=== PATIENT | female | born 1940 | race Caucasian/White ===

== ENCOUNTER → 2016-09-12 | Outpatient (CLI) | payer MEDICARE ==
--- NOTE | 2016-09-13 10:57 | ECHOF ---
Referral Reason:I10 htn MEASUREMENTS -------- HEIGHT: 167.6 cm WEIGHT: 81.6 kg BP: 120/78 RVIDd: 3.4 cm (< 3.3) IVSd: 1.2 cm (0.6 - 1.1) LVIDd: 4.3 cm (3.9 - 5.3) LVPWd: 1.2 cm (0.6 - 1.1) IVSs: 1.7 cm LVIDs: 3.1 cm LVPWs: 1.6 cm LA Diam: 3.2 cm (2.7 - 3.8) LAESV Index (A-L): 18.15 ml/m Ao Diam: 2.7 cm (2.0 - 3.7) AV Cusp: 1.5 cm (1.5 - 2.6) MV E Roel: 0.68 m/s MV DecT: 564 ms MV A Roel: 1.14 m/s MV E/A Ratio: 0.60 AV maxP.62 mmHg AV meanP.60 mmHg RAP: 5.00 mmHg RVSP: 30.10 mmHg FINDINGS -------- Sinus rhythm. This was a technically adequate study. The left ventricular size is normal. There is borderline concentric left ventricular hypertrophy. Overall left ventricular systolic function is normal with, an EF between 60 - 65 %. The right ventricle is mildly enlarged. Normal LA size by volume 22+/-6 ml/m2. The right atrium is normal in size. There is moderate to severe aortic valve sclerosis. Trace to mild aortic regurgitation. There is nyqhrdgm-nz-cunrks aortic stenosis present. Peak/mean gradient across the Aortic Valve is 64.62mmHg / 32.60mmHg. Mild mitral annular calcification present. There is trace mitral regurgitation. Mild tricuspid regurgitation present. Right ventricular systolic pressure is normal at < 35 mmHg. The pulmonic valve was not well visualized. The aortic root size is normal. Normal inferior vena cava with normal inspiratory collapse consistent with estimated right atrial pressure of 5 mmHg. There is no pericardial effusion. CONCLUSIONS -------- 1. Sinus rhythm. 2. Peak/mean gradient across the Aortic Valve is 64.62mmHg / 32.60mmHg. 3. Mild mitral annular calcification present. 4. There is trace mitral regurgitation. 5. Mild tricuspid regurgitation present. 6. Right ventricular systolic pressure is normal at < 35 mmHg. 7. The pulmonic valve was not well visualized. 8. The aortic root size is normal. 9. Normal inferior vena cava with normal inspiratory collapse consistent with estimated right atrial pressure of 5 mmHg. 10. There is no pericardial effusion. 11. This was a technically adequate study. 12. The left ventricular size is normal. 13. There is borderline concentric left ventricular hypertrophy. 14. Overall left ventricular systolic function is normal with, an EF between 60 - 65 %. 15. The right ventricle is mildly enlarged. 16. Normal LA size by volume 22+/-6 ml/m2. 17. There is moderate to severe aortic valve sclerosis. 18. There is fadtbbil-tt-twplin aortic stenosis present. ASSISTANT OPERATOR: Kasandra Headley RDCS
== END | disposition home or self-care (01) ==
LOC: RADECHMAIN 13:03
PROVIDERS: ATTEND Family Medicine
DX: I08.3 Combined rheumatic disorders of mitral, aortic and tricuspid valves (principal)
CPT/HCPCS: 93306

== ENCOUNTER → 2019-08-07 | Outpatient (CLI) | payer MEDICARE ==
--- NOTE | 2019-08-07 19:04 | ECHOF ---
Referral Reason:R01.1 Heart murmur MEASUREMENTS -------- HEIGHT: 152.4 cm WEIGHT: 83.9 kg BP: IVSd: 1.3 cm (0.6 - 1.1) LVIDd: 4.3 cm (3.9 - 5.3) LVPWd: 1.0 cm (0.6 - 1.1) IVSs: 1.4 cm LVIDs: 3.6 cm LVPWs: 1.1 cm LA Diam: 4.5 cm (2.7 - 3.8) LAESV Index (A-L): 29.30 ml/m MV EXCURSION: 14.577 mm (> 18.000) MV EF SLOPE: 82 mm/s (70 - 150) EPSS: 0.7 cm MV E Roel: 0.40 m/s MV DecT: 353 ms MV A Roel: 1.02 m/s MV E/A Ratio: 0.39 AV maxP.88 mmHg AV meanP.94 mmHg FINDINGS -------- Sinus rhythm. This was a technically adequate study. The left ventricular size is normal. There is mild concentric left ventricular hypertrophy. Overa ll left ventricular systolic function is normal with, an EF between 55 - 60 %. The right ventricle is normal in size. The left atrium is mildly dilated. LA is midly dilated 29-33ml/m2. The right atrial size is normal. There is severe aortic stenosis present. Peak/mean gradient across the Aortic Valve is 93.88mmHg / 55.94mmHg. Mild mitral annular calcification present. Mild mitral regurgitation is present. Mild tricuspid regurgitation present. Right ventricular systolic pressure is normal at < 35 mmHg. The pulmonic valve was not well visualized. The aortic root size is normal. Echo free space represents a pericardial fat pad. CONCLUSIONS -------- 1. Sinus rhythm. 2. This was a technically adequate study. 3. The left ventricular size is normal. 4. There is mild concentric left ventricular hypertrophy. 5. Overall left ventricular systolic function is normal with, an EF between 55 - 60 %. 6. The right ventricle is normal in size. 7. The left atrium is mildly dilated. 8. LA is midly dilated 29-33ml/m2. 9. The right atrial size is normal. 10. There is severe aortic stenosis present. 11. Peak/mean gradient across the Aortic Valve is 93.88mmHg / 55.94mmHg. 12. Mild mitral annular calcification present. 13. Mild mitral regurgitation is present. 14. Mild tricuspid regurgitation present. 15. Right ventricular systolic pressure is normal at < 35 mmHg. 16. The pulmonic valve was not well visualized. 17. The aortic root size is normal. 18. Echo free space represents a pericardial fat pad. EPIC AMBULATORY ANALYSTS: Raquel Wise RDCS
== END | disposition home or self-care (01) ==
LOC: RADECHMAIN 14:47
PROVIDERS: ATTEND Family Medicine
DX: I35.0 Nonrheumatic aortic (valve) stenosis (principal); Z88.5 Allergy status to narcotic agent; Z91.041 Radiographic dye allergy status; Z88.8 Allergy status to other drugs, medicaments and biological substances; Z88.6 Allergy status to analgesic agent
CPT/HCPCS: 93306

== ENCOUNTER 2021-08-04 18:43 | Emergency (ER) | payer MEDICARE ==
[2021-08-04 19:00] VITALS: TEMP 97.3
[2021-08-04] MEDS ORDERED: SODIUM CHLORIDE 0.9% 500 ML 500 ML IV ONE (19:09)
[2021-08-04] MEDS ORDERED: ONDANSETRON 4 MG/2 ML VIAL IVP STA (19:09)
--- NOTE | 2021-08-04 19:14 | ED ---
URI HPI - General Chief Complaint: Upper Respiratory Infection Stated Complaint: Covid+/cough Time Seen by Provider: 08/04/21 19:05 Source: patient, RN notes reviewed, old records reviewed Mode of arrival: ambulatory Limitations: no limitations - History of Present Illness Initial Comments: This is a well-appearing 81-year-old female that presents to the emergency room with complaints of cough, congestion, nausea and vomiting with body aches. Patient states that she did have a family member over the house on Sunday that was positive for coronavirus. She states that her symptoms worsened today with vomiting clear mucus. She states that she has been vaccinated against coronavirus. She did take it at home test that was positive. She did contact her primary care doctor who prescribed her antibiotics and prednisone. 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 MD Complaint: cough, other (Nausea, bodyaches) Severity scale (1-10): 0 Context: sick contacts Associated Symptoms: cough, nausea, vomiting, other (body aches) Treatments Prior to Arrival: Acetaminophen - Related Data Home Medications Medication Instructions Recorded Confirmed Multivitamins, Thera [Theragran] 1 tab PO DAILY@1400 06/02/14 08/04/21 Vitamin B Complex 1 cap PO DAILY 06/02/14 08/04/21 Alirocumab [Praluent Pen] 75 mg SQ Q14D 08/04/21 08/04/21 Amoxic-Pot Clav 875-125Mg 1 tab PO BID 08/04/21 08/04/21 [Augmentin 875-125] Ascorbic Acid [Vitamin C] 500 mg PO DAILY 08/04/21 08/04/21 Cholecalciferol [Vitamin D3 (25 50 mcg PO DAILY 08/04/21 08/04/21 Mcg = 1000 Iu)] Docusate [Colace] 100 mg PO HS PRN 08/04/21 08/04/21 Famotidine [Pepcid] 20 mg PO DAILY PRN 08/04/21 08/04/21 Metoprolol Tartrate [Lopressor] 25 mg PO BID 08/04/21 08/04/21 Pantoprazole Sodium [Protonix] 40 mg PO DAILY PRN 08/04/21 08/04/21 Ubidecarenone [Coenzyme Q10] 200 mg PO DAILY 08/04/21 08/04/21 lisinopriL [Zestril] 10 mg PO DAILY@1400 08/04/21 08/04/21 Allergies Allergy/AdvReac Type Severity Reaction Status Date / Time ephedrine Allergy Severe SEVERE Verified 08/04/21 20:33 TACHYCARDIA morphine Allergy Severe Nausea & Verified 08/04/21 20:33 Vomiting, SEVERE HEADACHE tramadol HCl [From Ultram] Allergy Severe Nausea & Verified 08/04/21 20:33 Vomiting, SEVERE HEADACHE pseudoephedrine HCl Allergy Unknown SEVERE Verified 08/04/21 20:33 [From Sudafed] TACHYCARDIA adhesive AdvReac Unknown RED SKIN Verified 08/04/21 20:33 IVP DYE Allergy Unknown Rash/Hives Uncoded 08/04/21 20:33 Review of Systems ROS Statement: Those systems with pertinent positive or pertinent negative responses have been documented in the HPI. ROS Other: All systems not noted in ROS Statement are negative. Past Medical History Past Medical History: Cancer, GERD/Reflux, Hyperlipidemia, Hypertension, Osteoarthritis (OA) Additional Past Medical History / Comment(s): AORTIC STENOSIS , HEART MURMUR, DIVERTICULOSIS, BACK PAIN, BASAL CELL CA. , TORN LEFT ROTATOR CUFF History of Any Multi-Drug Resistant Organisms: None Reported Past Surgical History: Cholecystectomy Past Anesthesia/Blood Transfusion Reactions: Previous Problems w/ Anesthesia, Family History of Problems w/ Anesthesia Additional Past Anesthesia/Blood Transfusion Reaction / Comment(s): STATES ELEVATED HEART RATE. MOTHER HAD PONV. Past Psychological History: No Psychological Hx Reported Past Alcohol Use History: Rare Past Drug Use History: None Reported - Past Family History Father Family Medical History: Cancer Additional Family Medical History / Comment(s): CLL Mother Family Medical History: Cancer, Pulmonary Embolus Additional Family Medical History / Comment(s): BRAIN TUMOR Sister(s) Family Medical History: Cancer Additional Family Medical History / Comment(s): 2 SISTERS HAD LUNG CANCER Brother(s) Family Medical History: Cancer Additional Family Medical History / Comment(s): PROSTATE AND BONE CA General Exam Limitations: no limitations General appearance: alert, in no apparent distress Head exam: Present: atraumatic Eye exam: Absent: scleral icterus, conjunctival injection, periorbital swelling ENT exam: Present: normal exam, normal oropharynx, mucous membranes moist Neck exam: Absent: tenderness, meningismus Respiratory exam: Absent: respiratory distress, wheezes, stridor, accessory muscle use, decreased breath sounds Cardiovascular Exam: Present: regular rate GI/Abdominal exam: Present: soft. Absent: distended, tenderness Neurological exam: Present: alert, oriented X3, normal gait Psychiatric exam: Present: normal affect, normal mood Skin exam: Present: warm, dry, normal color. Absent: cyanosis, diaphoretic, pallor Course Vital Signs 08/04/21 08/04/21 08/04/21 18:56 20:37 21:49 Temperature 97.3 F L Pulse Rate 80 68 71 Respiratory 20 18 Rate Blood Pressure 130/72 145/73 O2 Sat by Pulse 95 95 96 Oximetry Medical Decision Making - Medical Decision Making Patient presents Covid positive. Symptoms started less than 1 week ago after exposure to family member who was positive. She has been vaccinated. She did contact her primary care doctor who prescribed her antibiotics and prednisone. Since patient's symptoms started less than 10 days ago and she is 81 years old with history of heart disease, hypertension, high cholesterol and borderline diabetes, she was offered monoclonal antibodies. She was agreeable to receive monoclonal antibody infusion and tolerated the infusion without any difficulties. She is in no respiratory distress. Vital signs are stable. She was discharged home to follow up with her primary care doctor, self quarantine for 10 days from symptom onset. Return to the emergency room with any new or concerning symptoms including difficulty breathing, chest pain or persistent nausea vomiting. She is agreeable to this plan of care. Case was discussed with Dr Sears. - Lab Data Lab Results 08/04/21 Range/Units 19:19 Coronavirus (PCR) Detected A (Not Detectd) Disposition Clinical Impression: COVID-19 Disposition: HOME SELF-CARE Condition: Good Instructions (If sedation given, give patient instructions): COVID-19 (Coronavirus Disease 2019) (ED), How to Recover from COVID-19 at Home (ED) Additional Instructions: Self quarantine 10 days from symptom onset. Increase your fluid intake. You can take vitamin C, vitamin D and zinc daily for immune health. Tylenol as needed for any fevers or body aches. Follow-up with the primary care doctor next week. Return to the emergency room with any new or concerning symptoms including difficulty breathing, chest pain or persistent nausea/vomiting. Is patient prescribed a controlled substance at d/c from ED?: No Referrals: Zaire Monreal DO [Primary Care Provider] - 1-2 days Time of Disposition: 21:30
[2021-08-04] MEDS ORDERED: BEBTELOVIMAB (EUA) 175 MG/2 ML VIAL IV ONE (20:45)
[2021-08-04 21:50] VITALS: BP 145/73; PULSE 71; RESP 18
== END 2021-08-04 21:50 | disposition home or self-care (01) ==
LOC: EC 18:43
DX: U07.1 COVID-19 (principal); E78.5 Hyperlipidemia, unspecified; I10 Essential (primary) hypertension; K21.9 Gastro-esophageal reflux disease without esophagitis; Z79.83 Long term (current) use of bisphosphonates; Z88.5 Allergy status to narcotic agent; Z88.8 Allergy status to other drugs, medicaments and biological substances; Z91.041 Radiographic dye allergy status
CPT/HCPCS: 87635; 99284; 96374; 96361; J2405; Q0222